=== PATIENT | female | born 1970 ===

== ENCOUNTER 2020-06-24 13:32 | Inpatient (IN) | payer OTHER, SELFPAY ==
[2020-06-24] VITALS (14 sets, daily range): BP systolic 135–179; BP diastolic 75–97; PULSE 72–99; RESP 13–24; TEMP 36.1–37.2; O2SAT 93–100; BMI 30.9
--- NOTE | 2020-06-24 13:38 | DI.RAD.S_ITS ---
PROCEDURE: XR ANKLE RT 2V INDICATIONS: pain fall right ankle and tibfib TECHNIQUE: 2 views of the ankle were acquired. COMPARISON: [facility], CR, XR TIBIA FIBULA RT 2V, 06/24/2020, 13:41. FINDINGS: Bones: As seen on concurrent tib-fib radiographs, there is a mildly comminuted fracture of the distal tibial shaft with a vertical fracture extension inferiorly to the tibial plafond. There is no evidence of displacement of the articular surface. Also, there is a fracture of the distal fibular shaft which is mildly comminuted. Soft tissues: No definite tibiotalar joint effusion. Soft tissue swelling of the lower leg. Achilles tendon appears normal. IMPRESSION: 1. Pilon fracture of the distal tibia without evidence of displacement or comminution at the tibiotalar articular surface. 2. Distal fibular shaft fracture. Dictated by: Aston Recions M.D. on 06/24/2020 at 13:17 Approved by: Aston Recinos M.D. on 06/24/2020 at 13:21
--- NOTE | 2020-06-24 13:39 | ED_ITS ---
HPI - Extremity Injury (Lower) General Chief Complaint: Extremity Injury, Lower Stated Complaint: Rt lower leg injury/fx Time Seen by Provider: 06/24/20 13:38 Source: patient, family and EMS Mode of arrival: EMS History of Present Illness HPI Narrative: Patient is a 49-year-old female who presents with right lower leg pain. She was walking around [facility] when she was on some rocks she bent down to worm picker her daughter and in fact her daughter pulled her down and she landed on her right lower leg. She has an obvious deformity of her lower leg she is able to move her toes. There was no head injury no loss of consciousness she has no other bony deformities or complaints. This was all witnessed by her sister. Who is here now. She was given ketamine and fentanyl in the field and feels nauseous now. Most of the history is received by EMS and patient's sister. Related Data Home Medications Medication Instructions Recorded Confirmed metformin 1,000 mg PO BID 06/24/20 06/24/20 Allergies Allergy/AdvReac Type Severity Reaction Status Date / Time No Known Drug Allergies Allergy Verified 06/24/20 14:31 Review of Systems Review of Systems ROS Unobtainable: All systems reviewed & are unremarkable except as noted in HPI and below Constitutional Constitutional: Denies chills, Denies fever(s), Denies lethargy and Denies weakness Eyes Eyes: Denies blurry vision and Denies diplopia ENT Ears, Nose, Mouth, and Throat: Denies neck pain Cardiovascular Cardiovascular: Denies chest pain, Denies palpitations and Denies dyspnea Respiratory Respiratory: Denies cough and Denies dyspnea Gastrointestinal Gastrointestinal: Denies abdominal pain, Denies diarrhea and Reports nausea Genitourinary Genitourinary: Reports urinary hesitancy and Reports urinary urgency Genitourinary: Reports urinary hesitancy and Reports urinary urgency Musculoskeletal Musculoskeletal: Denies back pain, Denies myalgias and Denies neck pain Integumentary/Breasts Skin/Breast: Denies rash Neurologic Neurologic: Denies weakness Endocrine Endocrine: Denies palpitations Patient History Medical History Patient denies medical problems Social History household members: spouse Smoking Status: Never smoker alcohol intake: current Exam Initial Vital Signs Initial Vital Signs: Vital Signs Pulse Rate 80 06/24/20 13:32 Respiratory Rate 18 06/24/20 13:32 Blood Pressure 170/89 H 06/24/20 13:32 Pulse Oximetry 99 06/24/20 13:32 GENERAL: Patient currently is nauseous with vomiting HEENT: Head atraumatic,EOMI, pupils reactive, face symmetric NECK: Supple no vertebral tenderness or step-offs CARDIOVASCULAR: Regular rate and rhythm without murmurs, rubs or gallops. RESPIRATORY: Breath sounds equal bilaterally, no wheezes rales or rhonchi. ABDOMEN: Soft, nontender. Normoactive bowel sounds all 4 quadrants. No guarding or rebound. EXTREMITIES: Normal range of motion, no clubbing or edema. Neurovascularly intact Right lower extremity currently in Benedicto splint able to move toes distal pedal pulse intact NEUROLOGICAL: Alert and oriented x4. SKIN: Warm, dry, no laceration, no petechiae, no rashes or lesions. Procedures Orthopedic Splinting/Casting Injury #1: Side: right Lower Extremity Injury Location: lower leg Lower Extremity Immobilizer: posterior splint and stirrup splint Post splinting neuro exam: intact Post splinting vascular exam: intact Placed by: Provider Course Orders Ordered: ED Orders 06/24/20 13:38 XR ankle RT 2V Stat XR tibia fibula RT 2V Stat 06/24/20 13:59 Complete Blood Count AUTO DIFF Stat Comprehensive Metabolic Panel Stat 06/24/20 14:17 CT LE RT wo con Stat 06/24/20 14:39 EKG-12 Lead Stat Hydromorphone HCl (Hydromorphone 0.5 Mg Inj) 0.5 mg IV Q2H PRN PRN Reason: Pain, Moderate (4-6) Lactated Ringer's (Lactated Ringers) 1,000 mls @ 75 mls/hr IV CONT LAURA Last Admin: 06/24/20 17:18 Dose: 75 mls/hr Documented by: BERNARDO Metformin HCl (Metformin Hcl 500 Mg Tablet) 1,000 mg PO 0800,1700 LAURA Ondansetron HCl (Ondansetron 4 Mg Odt) 4 mg SL Q6HR PRN PRN Reason: Nausea Ondansetron HCl (Ondansetron 4 Mg/2 Ml Inj) 4 mg IV Q6HR PRN PRN Reason: Nausea And Vomiting Oxycodone/Acetaminophen (Oxycodone/Acetaminophen 5/325 Tablet) 2 tab PO Q4HR PRN PRN Reason: Pain, Severe (7-10) Last Admin: 06/24/20 17:54 Dose: 2 tab Documented by: BERNARDO Discontinued Medications Hydromorphone HCl (Hydromorphone 0.5 Mg Inj) 0.5 mg IV NOW ONE Stop: 06/24/20 14:40 Last Admin: 06/24/20 14:42 Dose: 0.5 mg Documented by: SUSHILA Hydromorphone HCl (Hydromorphone 1 Mg Inj) 1 mg IV NOW ONE Stop: 06/24/20 15:33 Last Admin: 06/24/20 16:06 Dose: Not Given Documented by: SUSHILA Cefazolin Sodium/Dextrose (Ancef) 2 gm in 100 mls @ 200 mls/hr IV NOW ONE Stop: 06/24/20 15:51 Lorazepam (Lorazepam 2 Mg/Ml Inj) 0.5 mg IV NOW ONE Stop: 06/24/20 13:39 Last Admin: 06/24/20 14:00 Dose: 0.5 mg Documented by: SUSHILA Ondansetron HCl (Ondansetron 4 Mg/2 Ml Inj) 4 mg IV NOW ONE Stop: 06/24/20 13:39 Last Admin: 06/24/20 14:01 Dose: 4 mg Documented by: SUSHILA Vital Signs Vital signs: Vital Signs - 8 hr 06/24/20 13:32 06/24/20 13:37 06/24/20 13:38 Pulse Rate 80 99 H 90 Respiratory Rate 18 Blood Pressure 170/89 H 179/89 H Pulse Oximetry 99 98 97 06/24/20 14:00 06/24/20 14:01 06/24/20 14:30 Pulse Rate 79 77 75 Respiratory Rate 22 18 14 Blood Pressure 143/87 H 161/80 H Pulse Oximetry 97 99 98 MDM - Extremity Injury (Lower) Lab Data Attestation: I reviewed the patient's lab results. Result diagrams: 06/24/20 13:59 06/24/20 13:59 Labs: Lab Results 06/24/20 06/24/20 06/24/20 Range/Units 13:59 13:59 14:46 WBC 11.6 H (4.5-11.0) X10^3/uL RBC 4.83 (4.0-5.2) X10^6/uL Hgb 13.9 (12.0-16.0) g/dL Hct 41.1 (36-46) % MCV 85.1 (80-100) fL MCH 28.8 (26-34) PG MCHC 33.9 (30-36) % RDW 13.5 (11.6-14.8) % Plt Count 267 (150-400) X10^3/uL Neut % (Auto) 55.6 (50-75) % Lymph % (Auto) 36.2 (25-40) % [place] % (Auto) 5.0 (3-14) % Eos % (Auto) 2.5 (2-4) % Baso % (Auto) 0.7 (0-2) % Neut # (Auto) 6400 (0902-4763) /uL Lymph # (Auto) 4200 (7379-5976) /uL [place] # (Auto) 600 (0-900) /uL Eos # (Auto) 300 (0-450) /uL Baso # (Auto) 100 (0-100) /uL Sodium 137 (137-145) mmol/L Potassium 3.7 (3.4-5.1) mmol/L Chloride 104 (98-107) mmol/L Carbon Dioxide 23 (22-32) mmol/L BUN 15 (7-17) mg/dL Creatinine 0.55 (0.52-1.04) mg/dL Estimated GFR > 60.0 (>60) mL/min BUN/Creatinine Ratio 27.3 H (6-22) Glucose 333 H (70-100) mg/dL Calcium 9.2 (8.4-10.2) mg/dL Total Bilirubin 0.6 (0.2-1.3) mg/dL AST 29 (14-36) IU/L ALT 30 (<35) IU/L Alkaline Phosphatase 79 (38-126) U/L Total Protein 7.2 (6.3-8.2) g/dL Albumin 4.3 (3.5-5.0) g/dL Globulin 2.9 (1.7-4.1) g/dL Albumin/Globulin Ratio 1.5 (1.0-2.8) SARS-CoV-2 (PCR) Negative (Negative) Point of Care Testing Glucose POC 318 Imaging Data Extremity x-ray #1: Radiologist's Impression: PROCEDURE: XR TIBIA FUBULA RT 2V INDICATIONS: pain fall right tibfib and ankle TECHNIQUE: 2 views of the tibia and fibula were acquired. COMPARISON: [facility], CR, XR ANKLE RT 2V, 06/24/2020, 13:41. FINDINGS: Bones: Mildly comminuted displaced fracture of the distal tibial shaft likely extending to the tibial plafond. Oblique fracture of the distal fibula shaft. No suspicious bony lesion. Soft tissues: No suspicious soft tissue calcifications or masses. Soft tissue swelling of the lower leg. IMPRESSION: Comminuted tibial fracture, likely extending to the tibial plafond, and oblique fracture of the distal fibular shaft. Dictated by: Aston Recinos M.D. on 06/24/2020 at 13:10 CT LE: Radiologist's Impression: PROCEDURE: CT LE RT WO CON INDICATIONS: fracture TECHNIQUE: Noncontrast 3-mm axial sections acquired from the distal tibial shaft to the talar dome, with coronal and sagittal reformats.. COMPARISON: Same-day right ankle and lower leg radiographs. FINDINGS: Image quality: Excellent. Bones: Comminuted distal tibial shaft fracture which is displaced at its proximal aspect by approximately 1.1 centimeter. There is propagation of 2 fracture planes inferiorly to the tibial plafond and without significant displacement (best seen on series 8, image 196). There is a 2 millimeter step-off of the anteriorly positioned coronal oblique fracture plane. A fracture line also extends through the posterior malleolus. There is a mildly comminuted fracture of the distal fibular shaft with approximately half bone shaft width displacement. The fracture terminates 4.9 centimeter above the ankle mortise. Soft tissues: Soft tissue swelling about the fracture sites. Focal increased tenosynovial fluid of the posterior tibialis tendon at the ankle, likely related to inflammation/trauma. IMPRESSION: Mildly comminuted pilon fracture of the tibial plafond and. No significant displacement at the articular surface. Distal fibular shaft fracture which terminates well above the level of the ankle mortise. Dictated by: Aston Recinos M.D. on 06/24/2020 at 14:12 ECG Data Attestation: I personally reviewed and interpreted this ECG as follows: Prior ECG tracings: not available for review Interpretation: Normal sinus rhythm rate 69 year interval 154 QRS [address] changes no T-wave inversions MDM Narrative Medical decision making narrative: Patient initially quite nauseous and vomiting is not able to answer questions her sister did most of the talking Tenzin I think this was related to ketamine and fentanyl given in the field. The Ativan seemed to help. As time went on she became his more coherent. 1400-Dr. Knapp has reviewed x-ray herself and updated on patient's symptoms she is in ED to seen evaluated patient. At this time will admit patient to her with likely OR tomorrow Discharge Plan Departure Patient Disposition: Admitted As Inpatient Clinical Impression: Closed fracture of distal end of fibula with tibia Qualifiers: Encounter type: initial encounter Laterality: right Qualified Code(s): S82.831A - Other fracture of upper and lower end of right fibula, initial encounter for closed fracture Admit Date/Time: 06/24/20 14:50 Admit Provider: Carmita Knapp
[2020-06-24] MEDS: LORazepam 2 MG/ML INJ 0.5 MG IV (14:00)
[2020-06-24] MEDS: ONDANSETRON 4 MG/2 ML INJ IV (14:01)
--- NOTE | 2020-06-24 14:17 | DI.CT.S_ITS ---
PROCEDURE: CT LE RT WO CON INDICATIONS: fracture TECHNIQUE: Noncontrast 3-mm axial sections acquired from the distal tibial shaft to the talar dome, with coronal and sagittal reformats.. COMPARISON: Same-day right ankle and lower leg radiographs. FINDINGS: Image quality: Excellent. Bones: Comminuted distal tibial shaft fracture which is displaced at its proximal aspect by approximately 1.1 centimeter. There is propagation of 2 fracture planes inferiorly to the tibial plafond and without significant displacement (best seen on series 8, image 196). There is a 2 millimeter step-off of the anteriorly positioned coronal oblique fracture plane. A fracture line also extends through the posterior malleolus. There is a mildly comminuted fracture of the distal fibular shaft with approximately half bone shaft width displacement. The fracture terminates 4.9 centimeter above the ankle mortise. Soft tissues: Soft tissue swelling about the fracture sites. Focal increased tenosynovial fluid of the posterior tibialis tendon at the ankle, likely related to inflammation/trauma. IMPRESSION: Mildly comminuted pilon fracture of the tibial plafond and. No significant displacement at the articular surface. Distal fibular shaft fracture which terminates well above the level of the ankle mortise. Dictated by: Aston Recinos M.D. on 06/24/2020 at 14:12 Approved by: Aston Recinos M.D. on 06/24/2020 at 14:21
[2020-06-24] MEDS: HYDROMORPHONE 0.5 MG INJ IV ×3 (14:42→23:50)
[2020-06-24 14:54] LABS: Add Manual Diff / Slide Review NO; Basophils Absolute Auto 100 /uL (0-100); Basophils Percent Auto 0.7 % (0-2); Eosinophils Absolute Auto 300 /uL (0-450); Eosinophils Percent Auto 2.5 % (2-4); Hematocrit 41.1 % (36-46); Hemoglobin 13.9 g/dL (12.0-16.0); Lymphocytes Absolute Auto 4200 /uL (1100-4500); Lymphocytes Percent Auto 36.2 % (25-40); Mean Corpuscular HGB Conc 33.9 % (30-36); Mean Corpuscular Hemoglobin 28.8 PG (26-34); Mean Corpuscular Volume 85.1 fL (80-100); Monocytes Absolute Auto 600 /uL (0-900); Neutrophils Absolute Auto 6400 /uL (1500-7000); Neutrophils Percent Auto 55.6 % (50-75); Platelet Count 267 X10^3/uL (150-400); Red Blood Cell Count 4.83 X10^6/uL (4.0-5.2); Red Cell Distribution Width 13.5 % (11.6-14.8); White Blood Cell Count 11.6 X10^3/uL (4.5-11.0)
[2020-06-24 14:56] LABS: Alanine Aminotransferase 30 IU/L (<35); Albumin 4.3 g/dL (3.5-5.0); Albumin Globulin Ratio 1.5 (1.0-2.8); Alkaline Phosphatase 79 U/L (38-126); Aspartate Aminotransferase 29 IU/L (14-36); BUN Creatinine Ratio 27.3 (6-22); Bilirubin Total 0.6 mg/dL (0.2-1.3); Blood Urea Nitrogen 15 mg/dL (7-17); Calcium 9.2 mg/dL (8.4-10.2); Carbon Dioxide 23 mmol/L (22-32); Chloride 104 mmol/L (98-107); Estimated Glomerular Filt Rate > 60.0 mL/min (>60); Globulin 2.9 g/dL (1.7-4.1); Glucose 333 mg/dL (70-100); HEMOLYSIS < 15 (0-50); Potassium 3.7 mmol/L (3.4-5.1); Sodium 137 mmol/L (137-145); Total Protein 7.2 g/dL (6.3-8.2)
--- NOTE | 2020-06-24 15:28 | P.HP_ITS ---
History of Present Illness History of Present Illness Date Patient Seen: 06/24/20 Time Patient Seen: 15:28 Date of Onset of Symptoms: 06/24/20 Chief complaint: Rt lower leg injury/fx Narrative: This is a pleasant 49-year-old female who lives down in [place] with her was in the and works at [employer]. She was up w ith her family who live in [place] including her sister and multiple family members today when she accidentally fell [place] and noted the acute onset of right ankle pain. She was transported [facility] for evaluation and treatment. I spoke to her who is active duty and he notes that brought her to no longer has inpatient capacity. He said if she needs surgery he would strongly prefer if she was treated here as she potentially can go home with her sister who can help also provide some care. Patient History Family & Social History Safety & Behavioral: Feels Safe in Current Yes Environment Been Physically Hurt or No Threatened By a Person Tobacco & Substance use: Smoking Status Never smoker Substance Use Type does not use Meds Home Medications and Allergies Allergies Allergy/AdvReac Type Severity Reaction Status Date / Time No Known Drug Allergies Allergy Verified 06/24/20 14:31 Review of Systems Review of Systems Narrative: She notes she is doing well has not had fever chills or other problems. She was not lightheaded dizzy or having any chest pain or other probl ems prior to her fall. Review of systems otherwise negative. Exam Vital Signs (past 8 hours): - 06/24/20 13:32 06/24/20 13:37 06/24/20 13:38 Pulse Rate 80 99 H 90 Respiratory Rate 18 Blood Pressure 170/89 H 179/89 H Pulse Oximetry 99 98 97 06/24/20 14:00 06/24/20 14:01 06/24/20 14:30 Pulse Rate 79 77 75 Respiratory Rate 22 18 14 Blood Pressure 143/87 H 161/80 H Pulse Oximetry 97 99 98 06/24/20 15:01 06/24/20 15:20 Pulse Rate 75 78 Respiratory Rate 15 13 Blood Pressure 152/76 H 151/76 H Pulse Oximetry 93 100 Oxygen Delivery Method Room Air Narrative Exam Narrative: She is resting but clearly in pain, HEENT is benign, lungs are clear, cor regular rate and rhythm, neck is supple there is no carotid bruits, abdomen soft and benign, she has some mild numbness in the right lower extremit y, she has adequate capillary refill, she can fire her toe flexors and extensors with trace motion, scans contused but intact, knee exam is benign to palpation range of motion is not tested, she is in a splint that was applied in the field. Objective Labs Result Diagrams: 06/24/20 13:59 06/24/20 13:59 Labs: Laboratory Results - last 24 hr 06/24/20 06/24/20 13:59 13:59 WBC 11.6 H RBC 4.83 Hgb 13.9 Hct 41.1 MCV 85.1 MCH 28.8 MCHC 33.9 RDW 13.5 Plt Count 267 Neut % (Auto) 55.6 Lymph % (Auto) 36.2 [place] % (Auto) 5.0 Eos % (Auto) 2.5 Baso % (Auto) 0.7 Neut # (Auto) 6400 Lymph # (Auto) 4200 [place] # (Auto) 600 Eos # (Auto) 300 Baso # (Auto) 100 Sodium 137 Potassium 3.7 Chloride 104 Carbon Dioxide 23 BUN 15 Creatinine 0.55 Estimated GFR > 60.0 BUN/Creatinine Ratio 27.3 H Glucose 333 H Calcium 9.2 Total Bilirubin 0.6 AST 29 ALT 30 Alkaline Phosphatase 79 Total Protein 7.2 Albumin 4.3 Globulin 2.9 Albumin/Globulin Ratio 1.5 X-rays show a displaced right distal tib-fib fracture with extension into the ankle joint and of posterior malleolus fracture, the fracture extends from the metaphyseal diaphyseal junction into the ankle joint CT scan shows a displaced and slightly comminuted right tib-fib fracture there was clear extension into the ankle joint with posterior malleolar split as well as a split in the tibial plafond Assessment & Plan Assessment & Plan narrative: left tib-fib fracture with a tibial plafond fracture. She needs open reduction internal fixation. She needs a [employer] plate and I contacted the rep and they are having appropriate plates shipped to [facility]. I spoke to Dr. Palacios our foot and ankle specialist and the operating room crew and were scheduling it for 1st thing tomorrow morning at 9:30 a.m.. The procedure alternatives risks benefits and complications were discussed with the patient. She and her would prefer to have her treated here as they have family in the area who potentially could assist with postoperative care if needed.
[2020-06-24] MEDS: HYDROMORPHONE 1 MG INJ (15:33)
[2020-06-24 16:04] LABS: COVID19 - ADMIT (NP swab/PCR) Negative (Negative)
--- NOTE | 2020-06-24 17:11 | PC.NURSE ---
Admission/shift note: Patient arrived to floor, transferred via slide sheet from EMS. AxOx3, can make needs known. C/o nausea at arrival to floor, did have emesis. Hx of recent fall resulting in tib fib fracture. Splint over right lower extremity, cannot visualize so cannot determine bruising or injury to skin, no other skin issues noted. Patient home medications partially updated, MD aware. Moderate fall risk, patient on bed rest. Fall risk and call light education given, call light in reach.
[2020-06-24] MEDS: LACTATED RINGERS 1,000 ML 75 ML IV (17:18)
[2020-06-24] MEDS: OXYCODONE/ACETAMINOPHEN 5/325 TABLET 2 TAB PO (17:54)
[2020-06-25] VITALS (18 sets, daily range): BP systolic 108–148; BP diastolic 68–95; PULSE 67–90; RESP 12–24; TEMP 36.3–37.9; O2SAT 93–100; BMI 30.9
--- NOTE | 2020-06-25 | DI.RAD.S_ITS ---
PROCEDURE: XR ANKLE RT 2V INDICATIONS: OR TECHNIQUE: 4 intraoperative fluoroscopic views of the ankle were acquired. COMPARISON: [facility], CR, XR ANKLE RT 2V, 06/24/2020, 13:41. FINDINGS: Intraoperative fluoroscopic images shows internal fixation of previously noted comminuted distal tibial shaft fracture with surgical plate and numerous surgical screws in place. Distal fibular shaft fracture is again noted. IMPRESSION: Fluoro guidance was provided intraoperatively for internal fixation of distal tibial shaft. Dictated by: Roosevelt Scott M.D. on 06/25/2020 at 13:33 Approved by: Roosevelt Scott M.D. on 06/25/2020 at 13:34
--- NOTE | 2020-06-25 | DI.RAD.S_ITS ---
PROCEDURE: XR TIBIA FUBULA RT 2V INDICATIONS: POST OP TECHNIQUE: 2 views of the tibia and fibula were acquired. COMPARISON: [facility], CR, XR TIBIA FIBULA RT 2V, 06/24/2020, 13:41. FINDINGS: Bones: Internal fixation hardware in distal tibial shaft is seen. Comminuted distal tibial and fibular shaft fractures are seen unchanged with interval improved lower leg alignment. No gross hardware loosening or failure. No new fracture or dislocation. Soft tissues: No suspicious soft tissue calcifications or masses. Expected postsurgical changes are noted in right lower leg soft tissue. IMPRESSION: Post ORIF changes in distal tibial shaft with near anatomic lower leg alignment. Dictated by: Roosevelt Scott M.D. on 06/25/2020 at 13:37 Approved by: Roosevelt Scott M.D. on 06/25/2020 at 13:39
[2020-06-25] MEDS: OXYCODONE/ACETAMINOPHEN 5/325 TABLET 2 TAB PO (01:01)
--- NOTE | 2020-06-25 01:14 | PC.NURSE ---
Medicated with 0.5 mg. of Dilaudid IVP @ 2350 pain level was 6/10. Reassessed & pain level was up to 8/10 pt. was crying. 2 tabs. of Percocet administered & ice pack applied to Rt. foot. Will cont. POC & monitor.
--- NOTE | 2020-06-25 03:04 | PC.NURSE ---
Pt. C/O pain states it's like pin & needles I feel in the rt. leg all the way to my foot. Dr. Knapp notified orders received to medicated pt. with 30 mg. of Toradol IVP & 50 mg. of Vistaril PO now. Orders entered in the computer, awaiting for night pharmacist verification. Will cont. POC & monitor.
[2020-06-25] MEDS: KETOROLAC 30 MG/ML VIAL IV (03:22)
[2020-06-25] MEDS: hydrOXYzine pamoate 25 MG CAPSULE 50 MG PO (03:22)
--- NOTE | 2020-06-25 05:16 | PC.NURSE ---
Patient able to rest & sleep after medicated with 30 mg. of Toradol IVP & 50 mg. of Vistaril PO with sips of water. Awakens easily & did not C/O pain @ this time. Malcolm continue plan of care & monitor.
[2020-06-25] MEDS: LACTATED RINGERS 1,000 ML 75 ML IV (07:05)
[2020-06-25] MEDS: HYDROMORPHONE 0.5 MG INJ IV (07:42)
--- NOTE | 2020-06-25 08:21 | P.OP.PRE_ITS ---
Pre-operative Note COVID-19 COVID-19 status: Negative Result date/Date tested (Pos, Neg/Pending): 06/24/20 Interval Note History & Physical reviewed/Exam performed by Physician: Yes Changes to H&P: No H&P completed within 30 days and has changed as indicated here:: Patient does tell me that her metformin dose has been increased from 500-1000 b.i.d.. States she was just diagnosed with diabetes less than a year ago. Does not know what her hemoglobin A1c is but said it was high think even potentially 11. Denies any history of neuropathy. Does have a history of obstructive sleep apnea and uses a CPAP. No history of bleeding disorders or blood clots. She believes she may have had a lab panel drawn about a month ago at her home institution. Discussed the importance of close glycemic control To reduce perioperative complications. The patient has a displaced right distal tib-fib fractures with extension into the tibial plafond. she has been indicated for open reduction internal fixatio n of her fracture.The risks and benefits of the procedure have been discussed with the patient even opportunity to ask questions. The risks of surgery include but are not limited to infection, malunion, nonunion, Wound healing problems, persistence of pain, damage to nerves and blood vessels, posttraumatic arthritis, DVT, PE, cardiopulmonary complications and . The patient expressed a thorough understanding of the risks and benefits of surgery and has elected to proceed. Consent was signed.
--- NOTE | 2020-06-25 08:35 | PC.NURSE ---
Day shift: Pt off unit for procedure at approx 0835.
--- NOTE | 2020-06-25 08:43 | P.OP_ITS ---
Operative Date/Time/Diagnoses Date of procedure: 06/25/20 Time of procedure: 09:50 Pre-op diagnosis: right distal tibia and fibula shaft fracture right tibial pilon fracture closed type 2 diabetes with hyperglycemia obstructive sleep apnea utilizing CPAP Post-op diagnosis: same Procedure & Clinicians Procedure: 1. Open reduction internal fixation right tibial pilon fracture without fixation of fibula. CPT code 09634 2. Open reduction internal fixation right distal tibial shaft fracture CPT code 78923 3. Closed treatment fibula fracture Same procedure as scheduled: Yes Indications: The patient is a 49-year-old female from [place], [place] with type 2 diabetes and obstructive sleep apnea that sustained a ground level fall while walking at [facility] while visiting family. She had immediate pain and deformity to her right distal tibia and ankle. she was seen and evaluated at [facility] and in [facility] where she was found to have a closed distal tibia shaft fracture with extension into the plafond. And a fibula fracture. She was indicated for operative treatment. She was originally evaluated by Dr Gadiel Knapp. She has elected for fixation at this hospital where she has family support. The risks and benefits of the procedure have been discussed with the patient even opportunity to ask questions. The risks of surgery include but are not limited to infection, malunion, nonunion, persistence of pain, Wound healing problems, damage to nerves and blood vessels, posttraumatic arthritis, need for additional procedures, DVT, PE, cardiopulmonary complications and . The patient expressed a thorough understanding of the risks and benefits of surgery and has elected to proceed. Consent was signed. we have also discussed her comorbidities of diabetes. She does not know what her last hemoglobin A1c is but she has had a recent increase dosage. We will draw a hemoglobin A1c in the hospital. We discussed the impact of diabetes and glycemic control on wound and bone healing. Estimate least 6 weeks nonweightbearing after fixation and progressive weight-bearing. Surgeon: Lindsay Cid Click Yes if Unassisted: Yes Anesthesia Type: General, Peripheral nerve block and Local Operative Notes Findings: right distal tibia shaft fracture with spiral extension down into the plafond demonstrating nondisplaced Volkmann and Chaput fragments. Closure Type: primary Specimen(s): none sent Prosthetic devices, grafts, tissues, transplants, or devices: Knapp and nephew Evos 3.5 medial distal tibial plate 15 hole, right with nonlocking and locking screws. 2.7 and 3. 5 screws. Estimated Blood Loss (mL): 30 Blood products transfused: none Tourniquet time (min): 87 Procedure in detail: Patient was seen in the preoperative area the site of surgery was marked informed consent confirmed. Patient was brought back to the operating room by the anesthesia team. Because of the low energy nature of the fracture the patient was appropriate for a regional anesthetic block to supplement our Anesthesia for postoperative pain control. She underwent a regional block with the anesthesia team. She was brought back to the operating room positioned supine on the operative table. All bony prominences were well padded. Well-padded thigh tourniquet was placed on the operative extremity. General anesthetic was administered. The patient's right lower extremity was prepped and draped in the standard sterile fashion. A formal time-out procedure was performed confirming the patient's side and site of surgery administration of appropriate preoperative antibiotics which was 2 g of Ancef presence of informed consent. Implants were in the room and accounted for. All were in agreement. Attention was turned to the patient's right lower extremity. The C-arm fluoroscopy was brought in. This was a distal tibia shaft fracture with extension into the plafond. There was a same level fibula fracture. Under C-ar m guidance and 2 K-wires were placed 1 anterior to posterior through the Chaput fragment to the posterior malleolus and 1 medial to lateral. This was to hold the alignment of the distal plafond fragments with a nondisplaced fractures. Next attention was turned to the metaphyseal shaft fracture. Using a percutaneous technique and a pointed reduction clamp under C-arm guidance this was reduced and clamped improving alignment. Attention was turned to the fixation of the plafond. A guidewire for a 4-0 cannulated lag screw was placed from anterior to posterior in the lateral half of the plafond extending the level of the physis scar posteriorly into the posterior malleolus. This was over drilled and a 4.0 partially-threaded cannulated lag screw was placed securing these plafond fragments. Next a 3 cm incision over the medial aspect of the medial malleolus was made distally. Care was taken to protect the saphenous vein and nerve anteriorly. The 15 hole medial distal tibia plate was then slid along the periosteum from distal to proximal along the bone. This was viewed under fluoroscopy proximally was initially found to be too posterior and through a small limited incision proximally this was moved anteriorly and pinned in place in line with the tibial shaft. AP and lateral images were taken to adjust the position both in the anterior to posterior and proximal to distal planes. next distally initial nonlocking 3.5 screw was a utilized to compress the plate to the distal block. Then locking screws were placed. These were 3.5 and 2.7 locking screws. Proximally the plate was secured with 3.5 locking screws. Two screws were placed through the proximal incision then a 2nd small incision was placed for 2 additional shaft screws. At this point the syndesmosis was stressed and was stable. Therefore the minimally displaced fibula fracture was left alone. Final AP and lateral radiographs were obtained intraoperatively. These demonstrated acceptable alignment of the fracture. There did appeared to be a touch of varus, about 5 degrees. This was felt to be reasonable given the patient's age and comorbidities. I did not want to formally open the fracture further and risk of wound complications or devitalization. Final tightening was completed. The tourniquet was released. Hemostasis was achieved. The wounds were closed with 2 O Vicryl, 4-0 Monocryl and 3-0 nylon. Sterile dressing was placed with Xeroform gauze Webril and bulky Miller cotton, splint and Kalen wrap. patient was awoken from anesthesia and taken to the PACU. There no immediate complications from this procedure. Complications: none Post-operative Condition: stable Disposition: PACU Plan for aftercare: The patient will have a hospitalist consultation to have her diabetic management. She was found to have a hemoglobin A1c of 11. She will be nonweightbearing/ toe-touch is acceptable for balance right lower extremity. Elevate above the heart level for as much as possible for 2 weeks after surgery to facilitate incision healing. Follow-up in Orthopedic Clinic in 2 weeks. Sutures will be removed between 2 and 4 weeks when the incisions are healed. Nonweightbearing x6 weeks then progressive weight-bearing in a boot. Recommend calcium and vitamin-D for bone healing. Recommend tight glycemic control. Lovenox 40 subQ daily starting postop day 1 for DVT prophylaxis x2 weeks then may transition to aspirin if mobilizing well.
[2020-06-25 09:24] LABS: Hemoglobin A1C% w Est Avg Glu 11.4 % (4.0-6.0)
[2020-06-25 09:25] LABS: BUN Creatinine Ratio 21.5 (6-22); Blood Urea Nitrogen 14 mg/dL (7-17); Calcium 9.4 mg/dL (8.4-10.2); Carbon Dioxide 30 mmol/L (22-32); Chloride 99 mmol/L (98-107); Estimated Glomerular Filt Rate > 60.0 mL/min (>60); Glucose 232 mg/dL (70-100); HEMOLYSIS < 15 (0-50); Phosphorous 3.6 mg/dL (2.5-4.5); Potassium 4.1 mmol/L (3.4-5.1); Sodium 135 mmol/L (137-145)
--- NOTE | 2020-06-25 09:46 | SUR.HOLD ---
Block start time [920] . Monitoring initiated and maintained throughout procedure. Oxygen given per anesthesiologist instructions, meds given by Dr. Hopkins. Patient remained stable throughout procedure, no adverse reactions noted. Block end time [937].To OR in stable condition.
[2020-06-25] MEDS: LACTATED RINGERS 1,000 ML 42 ML IV ×2 (09:55→10:55)
[2020-06-25] MEDS: CEFAZOLIN 2 GM/100 ML FROZ.PIGGY IV ×2 (10:05→17:13)
--- NOTE | 2020-06-25 10:09 | SUR.OPER ---
Supine on padded OR bed, head on pillow, arms secured on padded arm boards at <90 degrees abduction, legs uncrossed, safety belt at thigh, tape over blanket over left lower leg.Right leg under control of surgeon.
[2020-06-25] MEDS: BUPIVACAINE 0.25% W/ EPI (PF) 10 ML VIAL INJ (10:26)
--- NOTE | 2020-06-25 10:33 | PM.PROC.1 ---
Procedures Date/Time Date of procedure: 06/25/20 Time of procedure: 09:20 General Procedure description: Ultrasound guided popliteal sciatic and adductor canal saphenous nerve blocks for post op pain control after right distal tibia/fibula ORIF by Dr. Cid. Risk and benefits of procedure discussed with patient. ASA monitoring applied to patient. Oxygen given via nasal cannula. 2 mg Versed and 50 mcg fentanyl given for procedural sedation. Skin site was prepped with chlorhexidine and allowed to fully dry. Sterile gloves, mask, hat and probe cover were used to maintain sterility. 2% lidocaine and 30ga needle was used to make a small skin wheal at needle insertion site. Under ultrasound guidance, a 21ga 100mm Pajunk needle was directed near the division of the sciatic nerve into tibial and peroneal nerve in the popliteal fossa (lateral approach). Patient reported no parasthesias. After negative aspiration, 20 mL 0.5% ropivicaine and 5mg dexamethasone were injected around sciatic nerve. Patient tolerated procedure well. In similar fashion, the saphenous nerve was blocked in the adductor canal at the level of mid thigh. Chlorhexidine skin prep. Sterile gloves/equiptment/US sleeve used. Saphenous nerve located with US near femoral artery. 100mm Pajunk needle guided into adductor canal. After negative aspiration, 20mL of 0.5% ropivacaine and 5mg dexamethasone were injected without reported parasthesias. Procedure well tolerated. Upper photo: US of sciatic nerve in popliteal fossa, Lower photo: saphenous nerve in adductor canal (mid thigh)
--- NOTE | 2020-06-25 12:33 | CM.DANOTE ---
DCP: Case received, EMR reviewed. Patient currently down in surgery, but , Vini, was in the room. Introduced self and role. Was able to obtain information from patient's some discharge planning after she has her surgery. DCP assessment completed with information currently available. Patient is a 49 year old female who admitted yesterday afternoon to the care of the hospitalist team. PCP: Dr. Lees at [facility]. Payer: confirmed: Colby Hager. Patient came to the hospital via ambulance secondary to a fall that occurred at [facility] here in [place]. She had attempted to prevent her child from falling, and she ended up tripping and falling on some uneven ground causing a comminuted distal tibial displaced fracture of her right lower leg. She is currently in surgery. Patient's , Vini, was in patient's room. Confirmed that patient, and two children, 12 & 13 reside in [place] which is near [place]. Stated that they were up here visiting [facility]. He is currently active duty at [place], and works at the hospital there in charge of their lab. Patient is independent at her baseline. Mentioned discharge planning. Stated that she may be staying here with her mother an sister, and then, going home to [place]. He stated, she has plenty of support, and the children can help out as well. She does not yet have P.T. orders. P: DCP to continue to follow closely. Will see how she does post surgery, and will also see how she does with P.T. when she is medically stable and able to work with them. The goal is for patient to go home with family assist. Rochelle White RN/Ex Assistant/Program Director
--- NOTE | 2020-06-25 12:41 | SUR.PHASEI ---
Xrays obtained at [facility] by Radiology Team. Surgeon at [facility] during collection.
--- NOTE | 2020-06-25 12:43 | PC.NURSE ---
Day shift: Pt remains off of AC unit at this time.
--- NOTE | 2020-06-25 12:49 | SUR.PHASEI ---
Blood glucose 225. This is a follow-up assessment to insulin given by Result reported to Dr Hopkins. Surgeon has reportedly consulted seperate entity to address and manage high blood glucose levels.
--- NOTE | 2020-06-25 13:21 | PC.NURSE ---
Day shift: Pt back on AC unit fo PACu at approx 1515. She is sleepy but remains A&Ox4. VS WNL. RA 98%. Rt toes are warm and good cap refill. Cast in place and wrapped with TONY. Denies any pain or nausea. She did return to us with her glasses in place. Her spouse Vini is in the room for support. IV fluids per MAY. SCD in place on LLE. RLE has no sensation at this time. Call light in reach. Bed alarm is on. Pt encouraged to let RN know when pain is 4/10 or above and to not wait. She is agreeable to this. Will continue w/ plan of care.
[2020-06-25] MEDS: SODIUM CHLORIDE 0.9% 1,000 ML 84 ML IV (13:38)
[2020-06-25] MEDS: INSULIN ASPART 100 UNIT/ML INSULN PEN SUBCUT ×3 (13:43→20:58)
--- NOTE | 2020-06-25 13:58 | P.CONS_ITS ---
History of Present Illness Consult details Date Patient Seen: 06/25/20 Time Patient Seen: 13:58 Chief complaint: Rt lower leg injury/fx Reason for consult: Diabetes Management Requesting provider: Lindsay Cid Narrative: Valerie Montanez is a 49-year-old female with a past medical history of diabetes, CHRISTINE, and hyperlipidemia who was admitted to orthopedic surgery after she suffered a closed right distal tibia and fibular shaft fracture after a mechanical fall at [facility]. Prior to her fall she denies any chest pain, shortness of breath, dizziness, palpitations, abdominal pain, nausea, vomiting. She does not think she has had any polyuria, or polydipsia but her at bedside does state that she has been craving increased sugary things and has been urinating quite frequently. She recently had a follow-up with her primary care provider who found that her A1c had jumped to 11.1 from 7.9. She was diagnosed with diabetes about a year ago. She had been on 500 mg of metformin twice daily, her primary care provider increase this to 1000 mg twice daily which the patient had been taking. She reports that since starting this her sugars had improved from the 300s to the low 200s. The patient was admitted and underwent an open reduction and internal fixation of her right tibia and closed treatment of her fibular fracture on June 25. Medicine was consulted for assistance with diabetes management as the patient's A1c returned back at 11.4%, and her glucose on admission was greater than 300. Meds Home Medications and Allergies Home Medications Medication Instructions Recorded Confirmed Type metformin 1,000 mg PO BID 06/24/20 06/24/20 History Crestor 1,000 mg PO BID 06/25/20 06/25/20 History Allergies Allergy/AdvReac Type Severity Reaction Status Date / Time No Known Drug Allergies Allergy Verified 06/24/20 14:31 Review of Systems Review of Systems Narrative: All other systems reviewed with the patient and are negative unless otherwise stated. Exam Vital Signs (past 8 hours): - 06/25/20 07:30 06/25/20 08:47 06/25/20 12:13 Temperature 97.8 F 100.2 F H 97.9 F Pulse Rate 70 67 69 Respiratory Rate 21 18 14 Blood Pressure 147/85 H 137/90 123/74 Pulse Oximetry 100 97 99 06/25/20 12:18 06/25/20 12:23 06/25/20 12:28 Temperature Pulse Rate 72 71 80 Respiratory Rate 12 14 14 Blood Pressure 117/72 123/73 124/76 Pulse Oximetry 100 100 99 06/25/20 12:43 06/25/20 12:54 06/25/20 13:03 Temperature 97.5 F L Pulse Rate 69 67 75 Respiratory Rate 14 12 14 Blood Pressure 110/68 116/75 133/75 Pulse Oximetry 98 98 94 Oxygen Delivery Method Room Air Oxygen Flow Rate 3 Narrative Exam Narrative: GENERAL APPEARANCE: Well developed, well nourished, in no acute distress. SKIN: Inspection of the skin reveals no rashes, ulcerations or petechiae. HEENT: Normocephalic atraumatic, extraocular muscles are intact, oropharynx is clear and mucous membranes are moist. CHEST: Normal AP diameter and normal contour without any kyphoscoliosis. LUNGS: Auscultation of the lungs revealed no wheezes, rhonchi, or rales. CARDIOVASCULAR: There was a regular rate and rhythm without any murmurs, gallops, rubs. Peripheral pulses were 2+ and symmetric. ABDOMEN: Soft and nontender with normal bowel sounds. No ascites was noted. MUSCULOSKELETAL: Muscle strength and tone were grossly normal except for evaluation of right lower extremity which was not attempted due to the patient's cast. Distal toes on her right lower extremity have good color. EXTREMITIES: No cyanosis, clubbing or edema. Patient's right lower extremity unable to examine other than as noted above. NEUROLOGIC: Alert and oriented x 3. Normal affect. Objective Labs Result Diagrams: 06/24/20 13:59 06/25/20 08:55 Labs: Laboratory Results - last 24 hr 06/24/20 06/24/20 06/24/20 13:59 13:59 14:46 WBC 11.6 H RBC 4.83 Hgb 13.9 Hct 41.1 MCV 85.1 MCH 28.8 MCHC 33.9 RDW 13.5 Plt Count 267 Neut % (Auto) 55.6 Lymph % (Auto) 36.2 [place] % (Auto) 5.0 Eos % (Auto) 2.5 Baso % (Auto) 0.7 Neut # (Auto) 6400 Lymph # (Auto) 4200 [place] # (Auto) 600 Eos # (Auto) 300 Baso # (Auto) 100 Sodium 137 Potassium 3.7 Chloride 104 Carbon Dioxide 23 BUN 15 Creatinine 0.55 Estimated GFR > 60.0 BUN/Creatinine Ratio 27.3 H Glucose 333 H Hemoglobin A1c Calcium 9.2 Phosphorus Total Bilirubin 0.6 AST 29 ALT 30 Alkaline Phosphatase 79 Total Protein 7.2 Albumin 4.3 Globulin 2.9 Albumin/Globulin Ratio 1.5 SARS-CoV-2 (PCR) Negative 06/25/20 06/25/20 08:55 08:55 WBC RBC Hgb Hct MCV MCH MCHC RDW Plt Count Neut % (Auto) Lymph % (Auto) [place] % (Auto) Eos % (Auto) Baso % (Auto) Neut # (Auto) Lymph # (Auto) [place] # (Auto) Eos # (Auto) Baso # (Auto) Sodium 135 L Potassium 4.1 Chloride 99 Carbon Dioxide 30 BUN 14 Creatinine 0.65 Estimated GFR > 60.0 BUN/Creatinine Ratio 21.5 Glucose 232 H D Hemoglobin A1c 11.4 H Calcium 9.4 Phosphorus 3.6 Total Bilirubin AST ALT Alkaline Phosphatase Total Protein Albumin 4.0 Globulin Albumin/Globulin Ratio SARS-CoV-2 (PCR) Assessment & Plan Assessment & Plan narrative: Valerie Montanez is a 49-year-old female with a past medical history of diabetes, CHRISTINE, and hyperlipidemia who was admitted to orthopedic surgery after she suffered a closed right distal tibia and fibular shaft fracture after a mechanical fall at [facility]. The patient was admitted and underwent an open reduction and internal fixation of her right tibia and closed treatment of her fibular fracture on June 25. Medicine was consulted for assistance with diabetes management as the patient's A1c returned back at 11.4%, and her glucose on admission was greater than 300. 1. Type 2 diabetes, with hyperglycemia, present on admission - hold metformin during the course of her admission. Patient will need to start Lantus therapy as an outpatient given her A1c >10%. Will begin this evening with 10 U of lantus to start. Depending on response this will need to be titrated over time, with the assistance of her PCP as an outpatient to help reduce complications after surgery due to hyperglycemia including increased risk of infection and delayed healing. - continue fingersticks ACHS, with sliding scale insulin. 2. HLD, chronic - continue home medications 3. CHRISTINE, Chronic - continue patient's home CPAP 4. closed fracture of the R distal tibia and fibular shaft. - management per primary team Code: Full, surrogate decision maker is the patient's spouse. DVT: per primary team Medicine will continue to follow this patient to optimize blood sugars as well as possible prior to ultimate discharge home. COVID-19 COVID-19 status: Negative
--- NOTE | 2020-06-25 14:07 | PC.NURSE ---
Day shift: Pt was very hesitant to get the insulin this afternoon but did end up accepting it but said this is the only dose I want. Her spouse is in the room and encouraged her to take the insulin and explained that if her sugars are high then she may not heal proper. A1C was 11.4 as well. Other than the previous she has been shown how to use I.S. Her VS are WNL. RA 98% with CPAP in place (Thank you RT). Set up and put on by RT. Denies ay pain or nausea. She has been sleeping but does awake to voice or/and touch. Call light in reach. Bed alarm is on.
--- NOTE | 2020-06-25 16:12 | PT.IIE ---
Current Diagnoses Displaced comminuted fracture of shaft of right tibia, initial encounter for closed fracture (06/24/20) Surgery Performed Operation Date: 06/25/20 09:30 Actual Procedures p ORIF Tibial Pilon fracture(Right) - Lindsay Cid MD Medical History (Last Reviewed 06/24/20 @ 18:56 by Carisa Smart DO) Patient denies medical problems Physical Therapy Inpatient Evaluation/Re-Eval M1 PT/OT-IP Prior Functional Status Start: 06/25/20 13:33 Freq: NEEDED Status: Active Protocol: Document 06/25/20 16:12 AW (Rec: 06/25/20 16:58 AW [id number]) Medical Review Prior Functional Status Medical History Reviewed Yes Communication WNL. Pt is an effective verbal communicator. Mobility and Gait Independent Activities of Daily Living and IADL's Independent Social History Household Members spouse Living Arrangements House Number of Floors (Floors) Two Floors Number of Stairs To Enter/Railing? 1 SHAYNA with wide bilateral rails and can only use one at a time. Pt stays on the main level. Home Environment High Toilet,Walk in Shower,Tub /Shower Home Equipment Hand Held Shower Additional Social History Comment Pt lives near [place] with her active duty , 12 yo and 13 yo children, and a dog . DCP notes indicate possible d/c to mother's or sister's home in [place] but pt prefers to discharge home. M2 PT-IP Current Condition Start: 06/25/20 13:33 Freq: NEEDED Status: Active Protocol: Document 06/25/20 16:12 AW (Rec: 06/25/20 16:58 AW [id number]) Physical Therapy Current Condition Current Condition Evaluation Date 06/25/20 Treatment Diagnosis distal tib fib fx s/p ORIF; difficulty in walking Onset Date 06/24/20 Precautions Other Precautions - elevate leg as frequently as possible - bulky Miller splint RLE Weight Bearing Status Weight Bearing Status Non-Weight Bearing Allowed Weight Bearing Amount (enter % Per Dr. Cid op note: or #) (%) Nonweightbearing x6 weeks then progressive weight-bearing in a boot. M3 PT-IP Subjective Start: 06/25/20 13:33 Freq: NEEDED Status: Active Protocol: Document 06/25/20 16:12 AW (Rec: 06/25/20 16:58 AW [id number]) Subjective Physical Therapy Visit Type Type Initial Evaluation Visit Start Time 15:41 Visit Stop Time 16:12 Total Visit Minutes 31 Notes Pt's spouse, Vini, was present throughout evaluation. Number of HOBBING PRESS OPERATOR Visits 0 Physical Therapy Visit Comments Patient Comments Pt is willing to work with PT Patient Goals Return home with spouse and children providing support Therapy Pain Assessment Pain When Pain Assessed During Mobility Pain Present Pain Present Denied Pain Location Right Leg Intensity 0 Scale Used Numeric (0 - 10) M4 PT-IP Mobility and Gait Start: 06/25/20 13:33 Freq: NEEDED Status: Active Protocol: Document 06/25/20 16:12 AW (Rec: 06/25/20 16:58 AW [id number]) PT-Bed Mobility Assessment Supine to Sit Supine to Sit Contact Guard Assistance,Head of Bed Elevated Scooting Scooting to Edge of Bed Contact Guard Assistance PT-Transfer Assessment Sit to and From Stand Sit to and from Stand Contact Guard Assistance,1 Person Assistance,Use of Upper Extremities Equipment Transfer Assistive Device Gait Belt,Front Wheeled Walker Orthotic/Prosthetic Devices or Brace: No Transfers Transfer Destination Chair Transfer Technique Stand Pivot Transfer Ability Level of Assist Contact Guard Assistance,1 Person Assistance,Use of Upper Extremities Comments Mobility Comments Pt was sitting up in bed as PT arrived. Educated pt on WB status and demonstrated pivot transfer with FWW. With HOB elevated, pt was able to complete supine to sit and scoot to EOB CGA for support of the operative leg. No c/o pain with leg in dependent position. Pt stood CGA and used the FWW to transfer to chair set up 90 degrees to her right side CGA. Pt stood again from the chair CGA and walked forward four feet and backward to the chair again SBA to CGA. She was able to scoot back on the chair. PT assisted with positioning and provided extra pillows to elevate RLE in reclined position. Pt was left with call light and all needs in reach. Gait Assessment Gait Gait Assistance Required: Standby Assistance,Contact Guard Assist Distance (Feet) 8 Able to Maintain Weight Bearing Status Yes During Gait Assistive Devices Assistive Device Gait Belt,Front Wheeled Walker Gait Deviations General Gait Pattern Antalgic,Decreased Stride Length,Decreased Feet Clearance,Flexed Trunk,Step-to Gait Factors Limiting Gait Function Factors Limiting Gait Function Decreased Sensation,Decreased Strength,Poor Balance Comments Gait Comments Pt able to take forward and backward steps with FWW SBA to CGA. Discussed AD options including crutches and knee scooter with pt who stated preference for FWW because it slows me down and it feel like the right amount of support. Stair Climbing Assessment Comments Stair Climbing Comments Not assessed. PT-Balance Assessment Sitting Balance and Reactions Static Sitting Balance Ability Normal Dynamic Sitting Balance Ability Normal Standing Balance and Reactions Static Standing Balance Ability Good Dynamic Standing Balance Ability Fair Device Used FWW Balance Tests Single Limb Standing able to stand on LLE with FWW >60 seconds M5 PT-IP Objective Assessments Start: 06/25/20 13:33 Freq: NEEDED Status: Active Protocol: Document 06/25/20 16:12 AW (Rec: 06/25/20 16:58 AW [id number]) Orientation Orientation/Cognition Level of Alertness Alert Orientation Name,Day of Week,Place, Situation Language Function Ability No Deficits Noted Safety Awareness Understands Safety Issues Memory Description No Deficits Noted Gross Range of Motion Upper Extremity ROM Assessment Within Functional Limits Lower Extremity ROM Assessment Right Impaired Strength Upper Extremity Strength Assessment Within Functional Limits Lower Extremity Strength Assessment Right Impaired Hip 3+/5 Knee NT Ankle NT Comments Strength Comments LLE grossly 5/5 Sensation Assessment Sensation Gross Sensation Right LE Impaired Light Touch Absent Sensation Description Numbness Muscle Tone Muscle Tone WNL Yes M6 PT-IP Treatment Start: 06/25/20 13:33 Freq: NEEDED Status: Active Protocol: Document 06/25/20 16:12 AW (Rec: 06/25/20 16:58 AW [id number]) Physical Therapy Treatment Exercises Exercises Ankle Pumps,Gluteal Sets Education Education Provided Weight Bearing Status,Safety Other Treatments Other Treatment Performed Discussed home equipment needs with pt and her spouse, including shower chair, BSC, FWW, and possibly a w/c. M7 PT-IP Assessment and Plan Start: 06/25/20 13:33 Freq: NEEDED Status: Active Protocol: Document 06/25/20 16:12 AW (Rec: 06/25/20 16:58 AW [id number]) PT Summary Assessment and Plan Potential Rehabilitation Potential Good Status of Condition at Evaluation Evolving Summary Impairments Pain,ROM,Strength,Balance, Sensation,Bed Mobility, Transfers,Gait Assessment Summary Valerie is a 49 yo woman seen for PT evaluation on POD0 following ORIF for distal tib fib/pilon fracture. She is independent in all regards at baseline. She needed CGA for mobility at evaluation but was limited to transfers due to lingering numbness RLE. DCP notes refer to a plan for pt to stay with her mother or sister in [place], but pt expresses preference to go home near [place]. Barriers include one step to enter, lack of equipment, and spouse working cotton jammer. Pt does have 12 yo and 13 yo children at home not currently at in- person school who may be able to provide appropriate assist while spouse is at work. PT asked pt and her spouse to consider their discharge options tonight so PT and DCP could work toward their goals. For now, PT planning for pt to discharge home with family assist. Will continue to assess. Goals Bed Mobility Goal Independent Transfer Goal Independent,Front Wheeled Walker Gait Goal Independent,Front Wheel Walker Gait Distance 50 Other Goals - up/down one step with unilateral rail and NET DEVELOPER PROGRAMMER or LRAD opposite side Days to Meet Goals 5 Frequency of Treatment Frequency Of Treatment Twice a Day Treatment Plan Physical Therapy Treatment Plan Bed Mobility Training,Transfer Training,Gait Training, Therapeutic Exercise,Balance Retraining,Post Op Education, Discharge Planning,Hot or Cold Pack Other Recommendations and Next Treatment transfers, ambulation, Focus caregiver training when appropriate Precautions Other Precautions - elevate leg as frequently as possible - bulky Miller splint RLE Recommendations To Nursing Amount of Assist Needed 1 Person Assist Discharge Recommendations PT Discharge Recommendations Home with Assistance,Home with 24/7 Assist Available,Home Health Equipment Needed for Home Before shower chair, BSC, FWW Discharge Transportation Needs at Discharge Private Vehicle
[2020-06-25] MEDS: INSULIN GLARGINE 100 UNIT/ML 3ML PEN 10 UNIT SUBCUT (20:58)
[2020-06-25] MEDS: DOCUSATE 100 MG CAPSULE PO (21:04)
[2020-06-25] MEDS: METFORMIN HCL 500 MG TABLET 1000 MG PO (21:04)
[2020-06-25] MEDS: ACETAMINOPHEN 325 MG TABLET 975 MG PO (21:04)
[2020-06-25] MEDS: OXYCODONE IR 5 MG TABLET PO (22:17)
--- NOTE | 2020-06-25 23:21 | PC.NURSE ---
Pt had relatively uneventful evening. IVF infusing via pump as per orders. Sat in chair most afternoon. Med @ 2200 for discomfort w/good relief.. AC CBG = 290, S/S as per orders. HS CBG = 352, med w/ S/S and lantus. Call light w/in reach, bed alarm on for pt safety. Continue w/plan of care.
[2020-06-26] MEDS: OXYCODONE IR 5 MG TABLET PO ×4 (01:09→08:41)
[2020-06-26] MEDS: CEFAZOLIN 2 GM/100 ML FROZ.PIGGY IV (01:39)
[2020-06-26] MEDS: SODIUM CHLORIDE 0.9% 1,000 ML 84 ML IV (03:37)
--- NOTE | 2020-06-26 04:26 | PC.NURSE ---
Able to lift RLE, but not able to wiggle her toes. Still C/O numbness, pain level 4/10. Will medicate with 5 mg. of Oxycodone & monitor.
[2020-06-26 05:05] LABS: Hematocrit 38.1 % (36-46); Hemoglobin 12.8 g/dL (12.0-16.0); Mean Corpuscular HGB Conc 33.6 % (30-36); Mean Corpuscular Hemoglobin 28.7 PG (26-34); Mean Corpuscular Volume 85.3 fL (80-100); Platelet Count 255 X10^3/uL (150-400); Red Blood Cell Count 4.47 X10^6/uL (4.0-5.2); Red Cell Distribution Width 13.6 % (11.6-14.8)
[2020-06-26 05:11] LABS: BUN Creatinine Ratio 21.5 (6-22); Blood Urea Nitrogen 14 mg/dL (7-17); Calcium 9.4 mg/dL (8.4-10.2); Carbon Dioxide 29 mmol/L (22-32); Chloride 105 mmol/L (98-107); Estimated Glomerular Filt Rate > 60.0 mL/min (>60); Glucose 182 mg/dL (70-100); HEMOLYSIS < 15 (0-50); Potassium 4.3 mmol/L (3.4-5.1); Sodium 140 mmol/L (137-145)
[2020-06-26 06:00] VITALS: BP 135/79; PULSE 77; RESP 16; TEMP 36.2; O2SAT 99
--- NOTE | 2020-06-26 07:45 | PM.DS.1 ---
History of Present Illness History of Present Illness Date Patient Seen: 06/26/20 Time Patient Seen: 07:45 Chief complaint: Rt lower leg injury/fx Narrative: Please refer to previously documented HPI and chart. Discharge Providers Provider Date of admission: 06/24/20 14:50 Discharge Date: 06/26/20 Consults: 06/25/20 08:06 Consult to Dietitian, Adult Routine Comment: Reason For Exam: diabetes 06/25/20 09:34 Consult to Hospitalist Service Routine Comment: Consulting Provider: Don Gaviria Reason for consultation: dm uncontrolled Has provider been notified: Yes 06/25/20 13:16 Consult to Discharge Planning Routine Comment: Consult to Physical Therapy Evaluate & Treat Comment: Physician Instructions: Evaluate and Treat Consult to Respiratory Therapy Evaluate & Treat Comment: Physician Instructions: Evaluate and treat Discharge provider: Sergei Irvin PA-C Summary Hospital Course Discharge Diagnosis: 1. Right distal tibia and fibula shaft fracture & right tibial pilon fracture closed 2. Type 2 diabetes with hyperglycemia 3. Obstructive sleep apnea utilizing CPAP 4. Status post open reduction internal fixation right tibial pilon fracture without fixation of fibula, open reduction internal fixation right distal tibial shaft fracture & closed treatment fibula fracture Hospital Course: This is a 49-year-old female with the above-listed diagnoses that was consented for the above indicated procedure and presented to the operating room undergoing said procedure without difficulty or complication then admitted for rehabilitation having appropriately convalesced and consulted hospitalist for uncontrolled diabetes. Patient was eventually stable for discharge home safely from a surgical standpoint pending PT/OT and hospitalist clearance with regards to her diabetes prior to disposition the patient was doing well and verbalized understanding postoperative care instructions/restrictions including but not limited to Lovenox DVT prophylaxis and nonweightbearing on right lower extremity for at least 6 weeks. The patient agreed plan for follow-up including seeing her PCP in 1 week for further evaluation and treatment of her uncontrolled diabetes and orthopedic surgeon's office in 2 weeks for re-evaluation and possible suture removal. Status at Discharge Cognitive/behavioral status at discharge: at baseline, oriented Functional status at discharge: uses cane/walker Overall status at discharge: patient is not back to baseline Time Spent with Patient Time spent: Less than 30 minutes Exam Vital Signs (past 8 hours): - 06/25/20 23:56 06/26/20 06:00 Temperature 97.4 F L 97.1 F L Pulse Rate 77 Respiratory Rate 16 Blood Pressure 135/79 Pulse Oximetry 99 Oxygen Delivery Method Room Air Oxygen Flow Rate 0 Narrative Exam Narrative: 49-year-old female observed resting comfortably in bed with right ankle in splint and elevated with ice in no apparent distress and alert and oriented x3. The patient has a regular heart rate with normal inspiratory effort. Her dressing was clean dry and intact. The patient was able to move and feel her right toes despite residual numbness from her peripheral nerve block. There is good capillary refill in her pedal digits as well. The left lower extremity is negative for signs or symptoms of DVT. Objective Labs Result Diagrams: 06/26/20 04:40 06/26/20 04:40 Labs: Laboratory Results - last 24 hr 06/25/20 06/25/20 06/26/20 08:55 08:55 04:40 WBC 11.0 RBC 4.47 Hgb 12.8 Hct 38.1 MCV 85.3 MCH 28.7 MCHC 33.6 RDW 13.6 Plt Count 255 Sodium 135 L Potassium 4.1 Chloride 99 Carbon Dioxide 30 BUN 14 Creatinine 0.65 Estimated GFR > 60.0 BUN/Creatinine Ratio 21.5 Glucose 232 H D Hemoglobin A1c 11.4 H Calcium 9.4 Phosphorus 3.6 Albumin 4.0 06/26/20 04:40 WBC RBC Hgb Hct MCV MCH MCHC RDW Plt Count Sodium 140 Potassium 4.3 Chloride 105 Carbon Dioxide 29 BUN 14 Creatinine 0.65 Estimated GFR > 60.0 BUN/Creatinine Ratio 21.5 Glucose 182 H Hemoglobin A1c Calcium 9.4 Phosphorus Albumin PFSH Medical History (Updated 06/25/20 @ 17:29 by Don Gaviria DO) Diabetes HLD (hyperlipidemia) CHRISTINE (obstructive sleep apnea) Surgical History (Updated 06/25/20 @ 17:29 by Don Gaviria DO) History of open reduction and internal fixation (ORIF) procedure Family History (Updated 06/25/20 @ 17:29 by Don Gaviria DO) Father Diabetes mellitus Mother Diabetes mellitus Social History household members: spouse Smoking Status: Never smoker alcohol intake: current Discharge Assessment & Plan Assessment and Plan Assessment: 1. Right distal tibia and fibula shaft fracture & right tibial pilon fracture closed 2. Type 2 diabetes with hyperglycemia 3. Obstructive sleep apnea utilizing CPAP 4. Status post open reduction internal fixation right tibial pilon fracture without fixation of fibula, open reduction internal fixation right distal tibial shaft fracture & closed treatment fibula fracture Plan of Treatment: - Discharge home today after hospitalist & PT/OT clearance - NWB on RLE for 6 weeks then PWB Boot. - Lovenox 40 mg SQ QD for 2 weeks then possible transition to ASA - Encourage calcium and vitamin-D supplementation. - F/U in clinic in 2 weeks for re-evaluation and possible suture removal. Discharge Plan Discharge Plan Patient Disposition: Home Provider Discharge Comment: Please also make appointment to F/U with PCP in 1 week for DM. Discharge orders & Medications Prescriptions: New acetaminophen 325 mg Tablet 975 mg PO TID PRN (Reason: Breakthrough Pain, Moderate) Qty: 60 RF: 0 oxycodone 5 mg Tablet 5 mg PO Q3HR PRN (Reason: Pain, Moderate (4-6)) Qty: 60 RF: 0 enoxaparin [Lovenox] 40 mg/0.4 mL Syringe 40 mg SUBCUT DAILY Qty: 14 RF: 0 Continued metformin 1,000 mg Tablet 1,000 mg PO BID RF: 0 Crestor 1,000 mg PO BID RF: 0 Follow up/Referrals: Lindsay Cid MD [Physician] - (F/U in 2 weeks) Discharge Health Status Health Concerns: Needs better blood sugar control. Diet/Activity/Treatments Diet: Diet as Tolerated Activity: NWB on RLE for 6 weeks Cold/Heat Therapy: Ice 20 min / hr as tolerated. Other treatments: Elevate above heart as much as possible. Skin/Wound/Dressing Care Report to your healthcare provider any signs of infection, such as:: chills, fever, night sweats, increased pain, unusual drainage and unusual redness Dressing: Keep clean, dry & intact. waterproof bag when shower. Call if splint and dressing too tight. Visit Report/Discharge Packet Instructions: DI for Heart Failure, DI for Open Reduction Internal Fixation Surgery, DI for Prescription Opioid Use Stand Alone Forms: Surgery Discharge Quality VTE Deep Vein Thrombosis/Pulmonary Embolism Present on Admission: No
[2020-06-26 08:00] VITALS: BP 157/81; PULSE 73; RESP 22; TEMP 36.6; O2SAT 100
[2020-06-26] MEDS: DOCUSATE 100 MG CAPSULE PO (08:42)
[2020-06-26] MEDS: METFORMIN HCL 500 MG TABLET 1000 MG PO (08:42)
[2020-06-26] MEDS: ACETAMINOPHEN 325 MG TABLET 975 MG PO (08:42)
[2020-06-26] MEDS: INSULIN ASPART 100 UNIT/ML INSULN PEN SUBCUT ×2 (08:43→12:37)
[2020-06-26] MEDS: ENOXAPARIN 40 MG/0.4 ML SYRINGE SUBCUT (08:43)
--- NOTE | 2020-06-26 11:03 | PT.IPTN ---
Current Diagnoses Displaced comminuted fracture of shaft of right tibia, initial encounter for closed fracture (06/24/20) Surgery Performed Operation Date: 06/25/20 09:30 Actual Procedures p ORIF Tibial Pilon fracture(Right) - Lindsay Cid MD Physical Therapy Treatment Note M2 PT-IP Current Condition Start: 06/25/20 13:33 Freq: NEEDED Status: Active Protocol: Document 06/26/20 10:54 AMB (Rec: 06/26/20 11:03 AMB [id number]) Physical Therapy Current Condition Current Condition Evaluation Date 06/25/20 Treatment Diagnosis distal tib fib fx s/p ORIF; difficulty in walking Onset Date 06/24/20 Precautions Other Precautions - elevate leg as frequently as possible - bulky Miller splint RLE Weight Bearing Status Weight Bearing Status Non-Weight Bearing Allowed Weight Bearing Amount (enter % Per Dr. Cid op note: or #) (%) Nonweightbearing x6 weeks then progressive weight-bearing in a boot. M3 PT-IP Subjective Start: 06/25/20 13:33 Freq: NEEDED Status: Active Protocol: Document 06/26/20 10:54 AMB (Rec: 06/26/20 11:03 AMB [id number]) Subjective Physical Therapy Visit Type Type Treatment Note Visit Start Time 15:41 Visit Stop Time 16:12 Total Visit Minutes 31 Notes Pt's spouse, Vini, was present throughout evaluation. Number of SAFETY DEPOSIT BOXES CUSTODIAN Visits 0 Therapy Pain Assessment Pain Present Pain Present Denied Pain M4 PT-IP Mobility and Gait Start: 06/25/20 13:33 Freq: NEEDED Status: Active Protocol: Document 06/26/20 10:54 AMB (Rec: 06/26/20 11:03 AMB [id number]) PT-Bed Mobility Assessment Supine to Sit Supine to Sit Standby Assistance,Head of Bed Elevated PT-Transfer Assessment Sit to and From Stand Sit to and from Stand Standby Assistance,1 Person Assistance,Use of Upper Extremities Gait Assessment Gait Gait Assistance Required: Contact Guard Assist Distance (Feet) 15 Able to Maintain Weight Bearing Status Yes During Gait Assistive Devices Assistive Device Gait Belt,Front Wheeled Walker Gait Deviations General Gait Pattern Antalgic,Decreased Stride Length,Decreased Feet Clearance,Flexed Trunk,Step-to Gait Factors Limiting Gait Function Factors Limiting Gait Function Decreased Sensation,Decreased Strength,Poor Balance Stair Climbing Assessment Evaluation Level of Assist On Stairs Minimal Assistance,1 Person Assistance Devices Stair Climbing Assistive Devices Front Wheel Walker Technique/Endurance Stair Climbing Direction Ascend and Descend Stair Climbing Technique Step to Step Number of Steps Climbed 1 Stair Climbing Set # Repetitions (reps) 1 Comments Stair Climbing Comments Vini able to provide appropriate assist, demonstrated how to guard, how to use gait belt, good understanding. M5 PT-IP Objective Assessments Start: 06/25/20 13:33 Freq: NEEDED Status: Active Protocol: Document 06/25/20 16:12 AW (Rec: 06/25/20 16:58 AW [id number]) Orientation Orientation/Cognition Level of Alertness Alert Orientation Name,Day of Week,Place, Situation Language Function Ability No Deficits Noted Safety Awareness Understands Safety Issues Memory Description No Deficits Noted Gross Range of Motion Upper Extremity ROM Assessment Within Functional Limits Lower Extremity ROM Assessment Right Impaired Strength Upper Extremity Strength Assessment Within Functional Limits Lower Extremity Strength Assessment Right Impaired Hip 3+/5 Knee NT Ankle NT Comments Strength Comments LLE grossly 5/5 Sensation Assessment Sensation Gross Sensation Right LE Impaired Light Touch Absent Sensation Description Numbness Muscle Tone Muscle Tone WNL Yes M6 PT-IP Treatment Start: 06/25/20 13:33 Freq: NEEDED Status: Active Protocol: Document 06/26/20 10:54 AMB (Rec: 06/26/20 11:03 AMB [id number]) Physical Therapy Treatment Other Treatments Other Treatment Performed Further discussed FWW and shower chair, vended FWW per request M7 PT-IP Assessment and Plan Start: 06/25/20 13:33 Freq: NEEDED Status: Active Protocol: Document 06/26/20 10:54 AMB (Rec: 06/26/20 11:03 AMB [id number]) PT Summary Assessment and Plan Summary Impairments Pain,ROM,Strength,Balance, Sensation,Bed Mobility, Transfers,Gait Assessment Summary Valerie is d/cing home with spouse, teenage child support. Discussed how to use FWW, pt demonstrated good understanding of weightbearing restrictions, good balance with FWW. Spouse demonstrated good understanding of how to support/guard her. Discharge Recommendations PT Discharge Recommendations Home with Assistance,Home with 24/7 Assist Available,Home Health Equipment Needed for Home Before vended FWW, looking up Discharge shower chairs Transportation Needs at Discharge Private Vehicle
--- NOTE | 2020-06-26 11:26 | DIET.PN ---
Dietary Progress Note Assessment: 49y F admitted to hospital for surgical repair of broken leg after suffering fall while hiking referred to nutrition for poorly managed DM2. Pt was dx 1y ago c DM2, was on 1,000mg Metformin bid and reports going through DM education through [facility] in [place]. Pts A1c was 7.9 after DMSE but upon this admission was found to be 11.4 c BG 232-222. Pt starting on 10U Lantus daily upon d/c to be managed by PCP. Pt and spouse report poor dietary choices since winter secondary to trying to follow a low-carb diet. They do well then have a cheat day which leads to weeks of non-compliant eating. Additional barriers include having two children 12 and 13yo one c ADD the other c Autism and both with selective eating. also selective eater so pt often cooks different meals for each family member. Pt is [place] and loves rice and rice noodles, is willing to limit to no more than 2/3c at a time. She would be happy eating meat and veg in soup or stir bee but puts her preferences behind those of her children and . Pt reports being a stress eater and tends to stress eat carbs. Pt understands need for insulin coverage at this time to reduce risk of post-op complications and infections and feels this was wake up call to better manage her DM. Pt would like to demonstrate compliance to not be reliant on insulin long-term. HT: 160cm WT: 79.3kg BMI: 31 Labs: A1c 11.4 H, BG 232-333 H Nutrition Diagnosis: altered nutrition related laboratory values r/t endocrine dysfunction and dietary indiscretion aeb A1c 11.4 despite recent DSME, pt reports being off her diet and stress eating carbs, pt on 1,000mg metformin bid and discharging on 10U lantus to reduce chance of post-op complications for healing. Interventions: 1. Discussed role of DM in post-surgical healing. Educated on importance of BG <200 to promote healing. Educated on protein, Vits A and C, and zinc for wound healing. 2. Discussed barriers to good DM compliance. Strategized c pt and spouse on ways to focus on carb consistent diet rather than drastic carb reduced diet for senior care compliance. Discussed ways pt can consume nutritive pro + veggie stir bee and soups like eating it for breakfast or lunch when at home alone. Diet Order: CCD EER: 30g CHO/meal Monitoring/Evaluations: recc pt follow up c PCP for close DM management until demonstrating good compliance c A1c 7-8.
[2020-06-26] MEDS: OXYCODONE IR 10 MG TABLET PO (11:30)
--- NOTE | 2020-06-26 12:01 | CM.DPC ---
DCP Cont: Met with patient during team rounds. Dr. Schulte was going over medications for her diabetes,for she will be discharged on Lantus. Enriqueta, interstate planner, is also present, and will be doing some dietary teaching. This case resolution specialist ordered a walker for patient to take home. at bedside. She will need to follow up with her primary care provider at the [facility]. P: Patient is to discharge home today with FWW and family support. Rochelle White RN/Sharepoint Net Developer
--- NOTE | 2020-06-26 12:52 | PM.PN.1 ---
Subjective Subjective Date Patient Seen: 06/26/20 Time Patient Seen: 10:26 Interval history: Today she feels good. Pain is under control. Blood sugar improved on lantus Exam Vital Signs (past 8 hours): - 06/26/20 06:00 06/26/20 08:00 Temperature 97.1 F L 97.8 F Pulse Rate 77 73 Respiratory Rate 16 22 Blood Pressure 135/79 157/81 H Pulse Oximetry 99 100 Oxygen Delivery Method Room Air Oxygen Flow Rate 0 Narrative Exam Narrative: GENERAL APPEARANCE: no acute distress. SKIN: Inspection of the skin reveals no rashes, ulcerations or petechiae. HEENT: Normocephalic atraumatic, extraocular muscles are intact, oropharynx is clear and mucous membranes are moist. LUNGS: no wheezes, rhonchi, or rales. CARDIOVASCULAR: There was a regular rate and rhythm without any murmurs, gallops, rubs. Peripheral pulses were 2+ and symmetric. ABDOMEN: Soft and nontender with normal bowel sounds. No ascites was noted. MUSCULOSKELETAL: Muscle strength and tone were grossly normal except for evaluation of right lower extremity which was not attempted due to the patient's cast. Distal toes on her right lower extremity have good color. EXTREMITIES: No cyanosis, clubbing or edema. Patient's right lower extremity unable to examine other than as noted above. NEUROLOGIC: Alert and oriented x 3. Normal affect. Objective Labs Result Diagrams: 06/26/20 04:40 06/26/20 04:40 Labs: Laboratory Results - last 24 hr 06/26/20 06/26/20 04:40 04:40 WBC 11.0 RBC 4.47 Hgb 12.8 Hct 38.1 MCV 85.3 MCH 28.7 MCHC 33.6 RDW 13.6 Plt Count 255 Sodium 140 Potassium 4.3 Chloride 105 Carbon Dioxide 29 BUN 14 Creatinine 0.65 Estimated GFR > 60.0 BUN/Creatinine Ratio 21.5 Glucose 182 H Calcium 9.4 PFSH Medical History (Updated 06/25/20 @ 17:29 by Don Gaviria DO) Diabetes HLD (hyperlipidemia) CHRISTINE (obstructive sleep apnea) Surgical History (Updated 06/25/20 @ 17:29 by Don Gaviria DO) History of open reduction and internal fixation (ORIF) procedure Family History (Updated 06/25/20 @ 17:29 by Don Gaviria DO) Father Diabetes mellitus Mother Diabetes mellitus Social History household members: spouse Smoking Status: Never smoker alcohol intake: current Assessment & Plan Assessment & Plan narrative: Valerie Montanez is a 49-year-old female with a past medical history of diabetes, CHRISTINE, and hyperlipidemia who was admitted to orthopedic surgery after she suffered a closed right distal tibia and fibular shaft fracture after a mechanical fall at [facility]. The patient was admitted and underwent an open reduction and internal fixation of her right tibia and closed treatment of her fibular fracture on June 25. Medicine was consulted for assistance with diabetes management as the patient's A1c returned back at 11.4%, and her glucose on admission was greater than 300. 1. Type 2 diabetes, with hyperglycemia, present on admission - hold metformin during the course of her admission. Patient will need to start Lantus therapy as an outpatient given her A1c >10%. Will begin this evening with 10 U of lantus to start. Recommend DC with lantus 10U daily. Nutrition to discuss with patient about new insulin administration. Recommend follow up with PCP in 1-2 weeks for insulin titration. Blood sugars now in 160s-180s today and stable for DC today pending ortho. 2. HLD, chronic - continue home medications 3. CHRISTINE, Chronic - continue patient's home CPAP 4. closed fracture of the R distal tibia and fibular shaft. - management per primary team Code: Full, surrogate decision maker is the patient's spouse. DVT: per primary team Quality VTE Deep Vein Thrombosis/Pulmonary Embolism Present on Admission: No
--- NOTE | 2020-06-26 13:49 | PC.NURSE ---
Day shift: Paperwork signed and all questions answered. Went over Lantus injections as well as Lovenox injections. Asked and wrote on d/c packet that she needs to f/u with PCP about glucose control forward. Bilat toes warmand able to wiggle. Sensation present as well. Pt has all personal belongins and MD scripts. Pt's spouse is driving her home. Taken to that car in by MISSY Miguel at approx 1400.
== END 2020-06-26 14:43 | disposition home or self-care (01) | DRG 494 ==
LOC: ED 14:49 → AC 14:50
PROVIDERS: Internal Medicine; Orthopaedic Surgery Foot and Ankle Surgery; Admitting Provider Orthopaedic Surgery; Emergency Provider Emergency Medicine; Referring Provider Emergency Medicine; Visit Provider Orthopaedic Surgery
PROC: 0QSG04Z Reposition Right Tibia with Internal Fixation Device, Open Approach (ICD-10-PCS; principal; 2020-06-25 09:30)
DX: S82.252A Displaced comminuted fracture of shaft of left tibia, initial encounter for closed fracture (principal); S82.832A Other fracture of upper and lower end of left fibula, initial encounter for closed fracture; W18.39XA Other fall on same level, initial encounter; Y92.830 Public park as the place of occurrence of the external cause; E11.65 Type 2 diabetes mellitus with hyperglycemia; Z79.84 Long term (current) use of oral hypoglycemic drugs; G47.33 Obstructive sleep apnea (adult) (pediatric); Z20.822 Contact with and (suspected) exposure to COVID-19; E78.5 Hyperlipidemia, unspecified; Z71.3 Dietary counseling and surveillance
CPT/HCPCS: 29515; 36415; 64450; 73590; 73600; 73700; 76000; 80048; 80053; 80069; 82962; 83036; 85025; 85027; 87635; 93005; 96374; 96375; 97116; 97161; 99284; 99285; J0690; J1100; J1170; J1650; J1885; J2060; J2250; J2405; J2704; J3010

== ENCOUNTER 2020-06-26 14:52 | Emergency (ER) | payer OTHER, SELFPAY ==
[2020-06-24 16:38] VITALS: BMI 30.9
[2020-06-26 15:03] VITALS: BP 135/87; PULSE 78; RESP 17; TEMP 37.3; O2SAT 98; BMI 30.9
--- NOTE | 2020-06-26 16:39 | PC.NURSE ---
rafael provided for patient in lobby to prop leg on.
[2020-06-26 17:27] VITALS: BP 171/84; PULSE 89; RESP 20; O2SAT 94
--- NOTE | 2020-06-26 17:28 | ED_ITS ---
HPI - Extremity Problem General Chief complaint: Extremity Problem,Nontraumatic Stated complaint: rt leg pain Time Seen by Provider: 06/26/20 17:28 Source: patient Mode of arrival: Wheelchair History of Present Illness HPI Narrative: 49-year-old woman with closed Right distal tibia and fibula shaft fracture & right tibial pilon fracture. Status post open reduction internal fixation right tibial pilon fracture without fixation of fibula, open reduction internal fixation right distal tibial shaft fracture & closed treatment fibula fracture. She was discharged home from the hospital this afternoon and as she was getting into her car she felt a significant pull/pop with dramatically increased pain in the anterior portion of the affected ankle. They immediately came back into the hospital and were directed to the emergency room for further evaluation by floor staff who had just discharged them. Related Data Home Medications Medication Instructions Recorded Confirmed metformin 1,000 mg PO BID 06/24/20 06/24/20 Crestor 1,000 mg PO BID 06/25/20 06/25/20 Previous Rx's Medication Instructions Recorded acetaminophen 975 mg PO TID PRN #60 tab 06/26/20 enoxaparin [Lovenox] 40 mg SUBCUT DAILY #14 ml 06/26/20 insulin glargine [Lantus U-100 10 unit SUBCUT QPM #10 ml 06/26/20 Insulin] insulin syringe-needle U-100 #100 ea 06/26/20 lancets #100 ea 06/26/20 oxycodone 5 mg PO Q3HR PRN #60 tab 06/26/20 Allergies Allergy/AdvReac Type Severity Reaction Status Date / Time No Known Drug Allergies Allergy Verified 06/26/20 15:05 Review of Systems Review of Systems ROS Unobtainable: All systems reviewed & are unremarkable except as noted in HPI and below Patient History Medical History Diabetes HLD (hyperlipidemia) CHRISTINE (obstructive sleep apnea) Surgical History History of open reduction and internal fixation (ORIF) procedure Family History Father Diabetes mellitus Mother Diabetes mellitus Social History household members: spouse Smoking Status: Never smoker alcohol intake: current Smoking Status: Never smoker alcohol intake frequency: holidays/special occasions only Substance Use Type: does not use Exam Narrative Exam Narrative: General: Alert appropriate in no acute distress Respiratory: Able to speak in full sentences, no obvious respiratory distress Skin: No obvious rashes, warm and dry Neurologic: Grossly intact no obvious asymmetries or abnormalities Psych; quite upset and in pain but cooperative Extremity: Right lower leg in a cast. Neurovascularly intact. Initial Vital Signs Initial Vital Signs: Vital Signs Temperature 99.2 F 06/26/20 15:03 Pulse Rate 78 06/26/20 15:03 Respiratory Rate 17 06/26/20 15:03 Blood Pressure 135/87 06/26/20 15:03 Pulse Oximetry 98 06/26/20 15:03 Course Orders Ordered: Discontinued Medications Hydromorphone HCl (Hydromorphone 1 Mg Inj) 2 mg IM NOW ONE Stop: 06/26/20 18:25 Last Admin: 06/26/20 18:43 Dose: 2 mg Documented by: DEREK Hydroxyzine Pamoate (Hydroxyzine Pamoate 25 Mg Capsule) 25 mg PO NOW ONE Stop: 06/26/20 18:25 Last Admin: 06/26/20 18:43 Dose: 25 mg Documented by: DEREK Oxycodone/Acetaminophen (Oxycodone/Acetaminophen 5/325 Tablet) 2 tab PO NOW ONE Stop: 06/26/20 17:31 Last Admin: 06/26/20 17:34 Dose: 2 tab Documented by: DEREK Vital Signs Vital signs: Vital Signs - 8 hr 06/26/20 15:03 06/26/20 17:27 Temperature 99.2 F Pulse Rate 78 89 Respiratory Rate 17 20 Blood Pressure 135/87 171/84 H Pulse Oximetry 98 94 MDM - Extremity (Nontraumatic) Imaging Data X-ray tib-fib: Radiologist's Impression: FINDINGS: Bones: There is plate and screw fixation of the distal tibia. No findings of hardware failure or hardware loosening are seen. Stable fractures can be seen involving the distal tibia and the distal fibula. The overlying casting material limits evaluation of fine detail. Soft tissues: No suspicious soft tissue calcifications or masses. IMPRESSION: Stable postoperative hardware. Stable fractures of the distal fibula and distal tibia. Dictated by: Tera Baldwin M.D. on 06/26/2020 at 17:11 MDM Narrative Medical decision making narrative: 49-year-old woman post ORIF of her right ankle felt acute pain as she was transferring from the wheelchair into her car at time of discharge. Returns to the emergency room for further evaluation. X- rays do not show shifted hardware or fractures. Pain control is obtained in she is discharged home. Discharge Plan Departure Patient Disposition: Home Clinical Impression: Closed fracture of distal end of fibula with tibia Qualifiers: Encounter type: subsequent encounter Laterality: right Fracture healing: with routine healing Qualified Code(s): S82.301D - Unspecified fracture of lower end of right tibia, subsequent encounter for closed fracture with routine healing Instructions: DI for Postoperative Pain Activity Restrictions/Additional Instructions: I am so sorry that your discharge was not as smooth as we would have hoped Fortunately your x-rays do not show any disruption to your healing fracture Please make sure you keep the leg elevated and use pain medication as needed. Please keep all scheduled follow-up appointments with your orthopedic and primary care physicians. I hope you heal quickly Prescriptions: No Action metformin 1,000 mg Tablet 1,000 mg PO BID RF: 0 Crestor 1,000 mg PO BID RF: 0 acetaminophen 325 mg Tablet 975 mg PO TID PRN (Reason: Breakthrough Pain, Moderate) Qty: 60 RF: 0 oxycodone 5 mg Tablet 5 mg PO Q3HR PRN (Reason: Pain, Moderate (4-6)) Qty: 60 RF: 0 enoxaparin [Lovenox] 40 mg/0.4 mL Syringe 40 mg SUBCUT DAILY Qty: 14 RF: 0 Lantus U-100 Insulin 100 unit/mL solution 10 unit SUBCUT QPM Qty: 10 RF: 0 (DME) lancets 30 gauge misc See Rx Instructions .ROUTE .MEDSUPPLY Qty: 100 RF: 0 (DME) insulin syringe-needle U-100 0.3 mL 30 gauge x 1/2 syringe See Rx Instructions .ROUTE .MEDSUPPLY Qty: 100 RF: 0
--- NOTE | 2020-06-26 17:33 | DI.RAD.S_ITS ---
PROCEDURE: XR TIBIA FUBULA RT 2V INDICATIONS: pain post op TECHNIQUE: 2 views of the tibia and fibula were acquired. COMPARISON: [facility], CR, XR ANKLE RT 2V, 06/25/2020, 10:13. [facility], CT, CT LE RT WO CON, 06/24/2020, 14:34. [facility], CR, XR ANKLE RT 2V, 06/24/2020, 13:41. [facility], CR, XR TIBIA FIBULA RT 2V, 06/24/2020, 13:41. [facility], CR, XR TIBIA FIBULA RT 2V, 06/25/2020, 12:33. FINDINGS: Bones: There is plate and screw fixation of the distal tibia. No findings of hardware failure or hardware loosening are seen. Stable fractures can be seen involving the distal tibia and the distal fibula. The overlying casting material limits evaluation of fine detail. Soft tissues: No suspicious soft tissue calcifications or masses. IMPRESSION: Stable postoperative hardware. Stable fractures of the distal fibula and distal tibia. Dictated by: Tera Baldwin M.D. on 06/26/2020 at 17:11 Approved by: Tera Baldwin M.D. on 06/26/2020 at 17:12
[2020-06-26] MEDS: OXYCODONE/ACETAMINOPHEN 5/325 TABLET 2 TAB PO (17:34)
--- NOTE | 2020-06-26 17:37 | PC.NURSE ---
Surgery yesterday, discharged today, while attempting to get into vehicle patient experienced severe pain at incision site. Spouse attempted to call Acute Care to bring patient back in for re evaluation. Patient's states they were told they were discharged and needed to check into the ER to have his evaluated.
[2020-06-26] MEDS: hydrOXYzine pamoate 25 MG CAPSULE PO (18:43)
[2020-06-26] MEDS: HYDROMORPHONE 1 MG INJ 2 MG IM (18:43)
[2020-06-26 20:01] VITALS: BP 156/73; PULSE 86; O2SAT 99
== END 2020-06-26 20:02 | disposition home or self-care (01) ==
PROVIDERS: Emergency Provider Emergency Medicine
DX: S82.301D Unspecified fracture of lower end of right tibia, subsequent encounter for closed fracture with routine healing (principal)
CPT/HCPCS: 73590; 96372; 99283; 99284; J1170